=== PATIENT | male | born 1935 | race Caucasian/White ===

== ENCOUNTER → 2016-11-02 | Day surgery (SDC) | payer BC ==
[2016-10-27 15:04] VITALS: Ht 185.4 cm; Wt 86.4 kg
[~2016-11-02] VITALS: Ht 185.4 cm; Wt 86.4 kg
[~2016-11-02] MED LIST: 500ML BSS 0.3ML EPI 1:1000PF IRRIG ONE; ACET-1325; ACETAMINOPHEN 325 MG TAB PO PRN; AMVISC PLUS 0.8ML SYRINGE INT OCU ONE; ASPEC81 PO; ATROPINE SULFATE 0.1 MG/ML 5ML SYR IV PRN; AcetaZOLAMIDE 250 MG TAB ONE; BETAXOLOL HCL 0.25% OP SUSP PER DROP CHARGE OPR SCH; BRIMONIDINE TART 0.2% OP SOLN PER DROP CHARGE ONE; BSS FLUSH ONE; ENDOCOAT 0.85ML SYRINGE INT OCU ONE; EpHEDrine SULFATE INJ 50 MG/ML AMP IV PRN; EpINEphrine INJ 1MG/ML AMP 1 MG/ML AMP ONE; FENTANYL CITRATE INJ 50 MCG/1 ML 2 ML VIAL IV PRN; FLUMAZENIL 0.1 MG/1 ML 10 ML VIAL IV PRN; HYDROmorphone INJ 2 MG/ML SYR/VIAL IV PRN; LABETALOL HCL IV 5 MG/ML 20ML IV PRN; LACTATED RINGER'S 1000ML 500 ML IV SCH; LIDOCAINE 4% OP SOLN DROP CHARGE ONE; LIDOCAINE 4% OP SOLN DROP CHARGE OPR SCH; LIDOCAINE HCL 1% MPF 2 ML VIAL ONE; MEPERIDINE HCL 25 MG/ML CARP IV PRN; MIDAZOLAM HCL 1 MG/ML 2ML VIAL ONE; MIX: 4ML BSS 1ML EPI 1:1000 PF INSTIL ONE; MOXIFLOXACIN OPH SOLN PER DROP CHARGE ONE; MULT-190 PO; NALOXONE HCL 0.4 MG/1 ML VIAL/CARP IV PRN; NEPA0.6D; OCUCOAT 1 ML SOLN IO ONE; OFLO0.3S OP; ONDANSETRON INJ 2 MG/ML 2 ML VIAL IV PRN; PHENYLEPHRINE 100MCG/ML 5ML SYR IV PRN; POVIDONE-IODINE OP SOLN 30 ML BTL ONE; PRED1SUS3 OPL; PROPARACAINE 0.5% OP SOLN PER DROP CHARGE OPR SCH; TOBRAMYCIN/DEXAMETHASONE OPH OINT PER APPLN CHARGE ONE
--- NOTE | 2016-11-02 06:45 | History & Physical Bridge - [place] ---
H&P Re-Evaluation Bridge Note: I have examined the patient, reviewed the History & Physical and in the interval since the performance of the History & Physical I have noted the following changes of clinical significance: No changes noted
[2016-11-02] MEDS: PHENYLEPHRINE HCL 2.5% OP SOLN PER DROP CHARGE OPR SCH ×2 (06:51→06:56)
[2016-11-02] MEDS: TROPICAMIDE 1% OP SOLN PER DROP CHARGE OPR SCH ×2 (06:52→06:57)
[2016-11-02] MEDS: CYCLOPENTOLATE HCL 1% OP SOLN PER DROP CHARGE OPR SCH ×2 (06:53→06:59)
[2016-11-02] MEDS: MOXIFLOXACIN OPH SOLN PER DROP CHARGE OPR SCH ×2 (06:54→07:05)
--- NOTE | 2016-11-02 07:32 | Discharge Instructions-SurgCtr ---
Discharge Instructions Visit Reason for Visit: Right Cataract Discharge Goals Goal(s): Improve function Medications Stopped Medications Name(s): Ocuvite Activity Recommendations Lifting Limitations: no more than 10 pounds Exercise/Sports Limitations: gradually increase as tolerated May Resume Sexual Activity: when tolerated Shower/Bathe: tomorrow Driving or Machine Use: resume 1 day after discharge Anesthesia . Post Anesthesia Instructions: If you have had General Anesthesia or IV Sedation: * Do not drive today. * Resume driving when surgeon permits. * Do not make important decisions or sign legal documents today. * Call surgeon for: 1. Temperature elevations greater than 101 degrees F. 2. Uncontrollable pain. 3. Excessive bleeding. 4. Persistent nausea and vomiting. 5. Medication intolerance (nausea, vomiting or rash). * For nausea and vomiting use only clear liquids such as: tea, soda, bouillon until nausea subsides, then gradually increase diet as tolerated. * If you have any concerns or questions, call your surgeon's office. If physician is unavailable and it is an emergency, call 911 or go to the nearest emergency room. . Diet Recommendations Home Diet: resume previous diet Medical Emergencies . Who to Call and When: Medical Emergencies: If at any time you feel your situation is an emergency, please call 911 immediately. . Non-Emergent Contact . . "Provider Documentation" section prepared by Shane Bolanos.
--- NOTE | 2016-11-02 07:55 | [facility] Post Operative Brief Note ---
Immediate Operative Summary Operative Date Nov 02, 2016. Pre-Operative Diagnosis Right eye cataract Post-Operative Diagnosis Same as preop Procedure(s) Performed Right Cataract Phacoemulsification With Intraocular Lens Implant Surgeon Dr. Bolanos Courtroom Clerk Surgeon(s) None Estimated Blood Loss 0 mL Findings Dense nuclear cataract Fluids (cc crystalloids) 400 ml Specimens None Drains none Anesthesia L/S Complication(s) None Disposition Recovery Room / PACU
[2016-11-02 08:01] VITALS: TEMP 36.4
--- NOTE | 2016-11-02 08:13 | Anesthesia Progress Nt - [facility] ---
Anesthesia Post Op Note Date & Time Nov 02, 2016 at 08:12 Vital Signs Pain Intensity: 0 Vital Signs Past 12 Hours Date Time Temp Pulse Resp B/P Pulse Ox O2 Delivery O2 Flow Rate FiO2 11/02/16 08:01 36.4 77 16 127/75 96 Room Air 11/02/16 06:43 36.5 64 18 137/78 94 Room Air Notes Mental Status: alert / awake / arousable, participated in evaluation Pt Amnestic to Procedure: Yes Nausea / Vomiting: adequately controlled Pain: adequately controlled Airway Patency, RR, SpO2: stable & adequate BP & HR: stable & adequate Hydration State: stable & adequate Anesthetic Complications: no major complications apparent
[2016-11-02 08:31] VITALS: BP 132/76; PULSE 58; O2SAT 97
--- NOTE | 2016-11-02 08:43 | OPERATIVE REPORT ---
DATE OF OPERATION: 11/02/2016 PREOPERATIVE DIAGNOSIS: Senile nuclear cataract, right eye. POSTOPERATIVE DIAGNOSIS: Senile nuclear cataract, right eye. PROCEDURE: Phacoemulsification of right cataract with posterior chamber lens implant, type Bausch \T\ Lomb, model MX60, power +21.0 Diopters. ANESTHESIA: Local standby. SURGEON: Dr. Bolanos. COMPLICATIONS: None. OPERATING TIME: 10 minutes. OPERATION AND FINDINGS: PROCEDURE: The right pupil was dilated. The anesthetic was administered using a topical technique. The right eye was prepped and draped. A speculum was placed. A paracentesis was placed. The chamber was filled with Amvisc Plus and EndoCoat. Epinephrine solution was used. A clear corneal incision was formed. A capsulorrhexis was performed. The nucleus was hydrodissected. The lens was removed with phacoemulsification. Time was 8.43 seconds. The aspiration unit was used to remove the cortex. The capsule was filled with Amvisc Plus. The lens implant was folded and placed into the capsule. The incision was hydrated. The Amvisc was aspirated. The wound was secure. The chamber was deep. The pupil was round. Alphagan and TobraDex ointment and Vigamox solution were placed. The speculum was removed. DISPOSITION: The patient was returned to the recovery room in stable condition. I attest to the content of the Intraoperative Record and any orders documented therein. Any exceptions are noted below. I attest to the content of the Intraoperative Record and any orders documented therein. Any exceptions are noted below. SPENCER
== END | disposition home or self-care (01) ==
LOC: X.SURG 06:25
PROVIDERS: ATTEND Specialist
DX: H25.11 Age-related nuclear cataract, right eye (principal)

== ENCOUNTER → 2016-11-16 | Day surgery (SDC) | payer BC ==
[2016-11-09 14:40] VITALS: Ht 185.4 cm; Wt 86.4 kg
[~2016-11-16] VITALS: Ht 185.4 cm; Wt 86.4 kg
[~2016-11-16] MED LIST changes: -ACET-1325; -AcetaZOLAMIDE 250 MG TAB ONE; +AcetaZOLAMIDE 250 MG TAB PO SCH; +BETAXOLOL HCL 0.25% OP SUSP PER DROP CHARGE OPL SCH; -BETAXOLOL HCL 0.25% OP SUSP PER DROP CHARGE OPR SCH; -EpHEDrine SULFATE INJ 50 MG/ML AMP IV PRN; -FENTANYL CITRATE INJ 50 MCG/1 ML 2 ML VIAL IV PRN; +FENTANYL CITRATE INJ 50 MCG/1 ML 2 ML VIAL ONE; -FLUMAZENIL 0.1 MG/1 ML 10 ML VIAL IV PRN; -HYDROmorphone INJ 2 MG/ML SYR/VIAL IV PRN; -LABETALOL HCL IV 5 MG/ML 20ML IV PRN; +LIDOCAINE 4% OP SOLN DROP CHARGE OPL SCH; -LIDOCAINE 4% OP SOLN DROP CHARGE OPR SCH; -MEPERIDINE HCL 25 MG/ML CARP IV PRN; -NALOXONE HCL 0.4 MG/1 ML VIAL/CARP IV PRN; -NEPA0.6D; -OFLO0.3S OP; -ONDANSETRON INJ 2 MG/ML 2 ML VIAL IV PRN; -PHENYLEPHRINE 100MCG/ML 5ML SYR IV PRN; -PRED1SUS3 OPL; +PROPARACAINE 0.5% OP SOLN PER DROP CHARGE OPL SCH; -PROPARACAINE 0.5% OP SOLN PER DROP CHARGE OPR SCH
[2016-11-16] MEDS: PHENYLEPHRINE HCL 2.5% OP SOLN PER DROP CHARGE OPL SCH ×2 (09:57→10:02)
[2016-11-16] MEDS: TROPICAMIDE 1% OP SOLN PER DROP CHARGE OPL SCH ×2 (09:58→10:03)
[2016-11-16] MEDS: CYCLOPENTOLATE HCL 1% OP SOLN PER DROP CHARGE OPL SCH ×2 (09:59→10:04)
[2016-11-16] MEDS: MOXIFLOXACIN OPH SOLN PER DROP CHARGE OPL SCH ×2 (10:00→10:10)
--- NOTE | 2016-11-16 10:43 | Discharge Instructions-SurgCtr ---
Discharge Instructions Visit Reason for Visit: Cataract Left Eye Discharge Discharge Diagnosis / Problem: lens implant left eye Discharge Goals Goal(s): Improve function Activity Recommendations Activity Limitations: resume your previous activity Lifting Limitations: no more than 10 pounds Exercise/Sports Limitations: gradually increase as tolerated May Resume Sexual Activity: when tolerated Shower/Bathe: tomorrow Driving or Machine Use: resume 1 day after discharge Anesthesia . Post Anesthesia Instructions: If you have had General Anesthesia or IV Sedation: * Do not drive today. * Resume driving when surgeon permits. * Do not make important decisions or sign legal documents today. * Call surgeon for: 1. Temperature elevations greater than 101 degrees F. 2. Uncontrollable pain. 3. Excessive bleeding. 4. Persistent nausea and vomiting. 5. Medication intolerance (nausea, vomiting or rash). * For nausea and vomiting use only clear liquids such as: tea, soda, bouillon until nausea subsides, then gradually increase diet as tolerated. * If you have any concerns or questions, call your surgeon's office. If physician is unavailable and it is an emergency, call 911 or go to the nearest emergency room. . Instructions / Follow-Up Instructions / Follow-Up ACTIVITY RECOMMENDATIONS: * Light activities. * Mild irritation and blurred vision are common for the first few days. * You may walk outside, read, watch television. * Redness around the white part of the eye is common. MEDICATIONS: Resume previous medications unless instructed otherwise by your surgeon. * Take white Diamox (Acetazolamide) tablet at 2 pm today. Start all eye drops at 2 pm today: * Eye drops (today and tomorrow): Prednisone - one drop in operative eye every 3 hours while awake Ofloxacin - one drop in operative eye every 3 hours while awake Ilevro - one drop in operative eye once a day SPECIAL CARE INSTRUCTIONS: * Tape plastic shield over eye to sleep at night. Call your doctor at with any concerns or problems. FOLLOW UP VISIT: Follow-up with Dr Bolanos at [place] office as scheduled. Diet Recommendations Home Diet: no limitations Procedures Procedures Performed: cataract extraction with lens implant Pending Studies Studies pending at discharge: no Medical Emergencies . Who to Call and When: Medical Emergencies: If at any time you feel your situation is an emergency, please call 911 immediately. . Non-Emergent Contact Non-Emergency issues call your: [facility] Worker Call Non-Emergent contact if: your pain is not controlled [phone] . . "Provider Documentation" section prepared by Shane Bolanos.
--- NOTE | 2016-11-16 10:45 | [facility] Operative Report ---
Operative Report 1. PREOPERATIVE DIAGNOSIS: Senile nuclear cataract, left eye. 2. POSTOPERATIVE DIAGNOSIS: Senile nuclear cataract, left eye. 3. PROCEDURE: Phacoemulsification of left cataract with posterior chamber lens implant, type Bausch & Lomb, model MX60, power +21.0 diopters. ANESTHESIA: Local standby. SURGEON: Dr. Bolanos. COMPLICATIONS: None. OPERATING TIME: 10 minutes. 4. OPERATION AND FINDINGS: DESCRIPTION OF PROCEDURE: The left pupil was dilated. The anesthetic was administered using a topical technique. The left eye was prepped and draped. A speculum was placed. A clear corneal incision was formed. The chamber was filled with Amvisc Plus and Endocoat. Epinephrine solution was used. A paracentesis was placed. A capsulorrhexis was performed. The nucleus was hydrodissected. The lens was removed with phacoemulsification. Time was 7.86 seconds. The aspiration unit was used to remove the cortex. The capsule was filled with Amvisc Plus. The lens implant was folded and placed into the capsule. The incision was hydrated. The Amvisc was aspirated. The wound was secure. The chamber was deep. The pupil was round. TobraDex ointment and Vigamox solution were placed. The speculum was removed. The patient was returned to the Recovery Room in stable condition. I attest to the content of the Intraoperative Record and any orders documented therein. Any exceptions are noted below. The scribe's documentation has been prepared in my presence, under my direction and personally reviewed by me in its entirety. I confirm that the note above accurately reflects all work, treatment, procedures, and medical decision making performed by me. I personally scribed for Shane Bolanos M.D. ([email or web address]) on 11/16/16 at 10:44. Electronically submitted by Lidia Dee ([email or web address]).
[2016-11-16 10:56] VITALS: TEMP 36
--- NOTE | 2016-11-16 11:03 | Anesthesia Progress Nt - [facility] ---
Anesthesia Post Op Note Date & Time Nov 16, 2016 at 11:03 Vital Signs Pain Intensity: 0 Vital Signs Past 12 Hours Date Time Temp Pulse Resp B/P Pulse Ox O2 Delivery O2 Flow Rate FiO2 11/16/16 10:56 36.0 87 16 117/87 98 Room Air 11/16/16 09:46 36.2 69 16 161/68 97 Room Air Notes Mental Status: alert / awake / arousable, participated in evaluation Pt Amnestic to Procedure: Yes Nausea / Vomiting: adequately controlled Pain: adequately controlled Airway Patency, RR, SpO2: stable & adequate BP & HR: stable & adequate Hydration State: stable & adequate Anesthetic Complications: no major complications apparent
[2016-11-16 11:16] VITALS: BP 120/71; PULSE 57; O2SAT 96
== END | disposition home or self-care (01) ==
LOC: X.SURG 09:38
PROVIDERS: ATTEND Specialist
DX: H25.12 Age-related nuclear cataract, left eye (principal)

== ENCOUNTER → 2017-01-03 | Outpatient (CLI) | payer BC ==
[~2017-01-03] MED LIST changes: -500ML BSS 0.3ML EPI 1:1000PF IRRIG ONE; -ACETAMINOPHEN 325 MG TAB PO PRN; -AMVISC PLUS 0.8ML SYRINGE INT OCU ONE; -ATROPINE SULFATE 0.1 MG/ML 5ML SYR IV PRN; -AcetaZOLAMIDE 250 MG TAB PO SCH; -BETAXOLOL HCL 0.25% OP SUSP PER DROP CHARGE OPL SCH; -BRIMONIDINE TART 0.2% OP SOLN PER DROP CHARGE ONE; -BSS FLUSH ONE; -ENDOCOAT 0.85ML SYRINGE INT OCU ONE; -EpINEphrine INJ 1MG/ML AMP 1 MG/ML AMP ONE; -FENTANYL CITRATE INJ 50 MCG/1 ML 2 ML VIAL ONE; +GADAVIST IV PRN; -LACTATED RINGER'S 1000ML 500 ML IV SCH; -LIDOCAINE 4% OP SOLN DROP CHARGE ONE; -LIDOCAINE 4% OP SOLN DROP CHARGE OPL SCH; -LIDOCAINE HCL 1% MPF 2 ML VIAL ONE; -MIDAZOLAM HCL 1 MG/ML 2ML VIAL ONE; -MIX: 4ML BSS 1ML EPI 1:1000 PF INSTIL ONE; -MOXIFLOXACIN OPH SOLN PER DROP CHARGE ONE; -OCUCOAT 1 ML SOLN IO ONE; -POVIDONE-IODINE OP SOLN 30 ML BTL ONE; -PROPARACAINE 0.5% OP SOLN PER DROP CHARGE OPL SCH; -TOBRAMYCIN/DEXAMETHASONE OPH OINT PER APPLN CHARGE ONE
--- NOTE | 2017-01-03 13:28 | DIAGNOSTIC IMAGING REPORT ---
MRI CERVICAL SPINE COMBO CLINICAL HISTORY: SPINAL TUMOR TECHNIQUE: Sagittal and axial T1, T2 and STIR images were obtained. Pre and post gadolinium images were obtained. 8.8 cc of intravenous Gadavist was administered. COMPARISON STUDY: 12/30/2014 There are no suspicious areas of marrow replacement. There is a mixed signal intensity intramedullary lesion with thin the cervical cord at the C5 and C6 level measuring 22 x 10 x 6 mm. This contains a small cystic component. There is subtle post gadolinium enhancement. The lesion is unchanged in size when compared the preceding study. C2-3: There is no evidence of disc bulge or focal herniation. There is no spinal or foraminal stenosis. C3-4: There is cystic degeneration of the disc. There is a mild circumferential disc bulge. There is bilateral foraminal narrowing. C4-5: There is a circumferential disc bulge present. There is mild spinal canal narrowing. There is minor bilateral foraminal narrowing C5-6 :There is a disc osteophyte complex. There is mild spinal stenosis. There is moderate bilateral foraminal narrowing C6-7: There is no evidence of significant disc bulge or focal herniation. There is no spinal stenosis. There is mild left-sided foraminal narrowing C7-T1: There is no evidence of disc bulge or focal herniation. There is no evidence of spinal or foraminal stenosis. IMPRESSION: 1. Multilevel spondylitic changes, essentially unchanged from the prior 2014 study 2. 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 No significant change in size or enhancement characteristics. Electronically signed by: Yovanny Moctezuma M.D. 01/03/2017 1:27 PM Dictated Date/Time: 01/03/2017 1:18 PM
== END | disposition home or self-care (01) ==
LOC: C.MRIBC 11:51
PROVIDERS: ATTEND Family Medicine
DX: D49.7 Neoplasm of unspecified behavior of endocrine glands and other parts of nervous system (principal)

== ENCOUNTER → 2017-11-15 | Outpatient (CLI) | payer BC ==
[~2017-11-15] MED LIST changes: +ASPCH81X PO; -GADAVIST IV PRN
[2017-11-15 15:43] LABS: BASO % 0.9 %; BASO ABS # 0.07 K/uL (0-0.2); HEMATOCRIT 39.3 % (42-52); HEMOGLOBIN 13.2 g/dL (14.0-18.0); IG# 0.02 K/uL (0.00-0.02); LYMPH ABS # 1.87 K/uL (1.2-3.4); MEAN CELL VOLUME 94.2 fL (80-100); MEAN CORPUSCULAR HEMOGLOBIN 31.7 pg (25-34); MEAN CORPUSCULAR HGB CONC 33.6 g/dl (32-36); MEAN PLATELET VOLUME 10.7 fL (7.4-10.4); MONO % 10.5 %; MONO ABS # 0.79 K/uL (0.11-0.59); NEUT % 59.3 %; NEUT ABS # 4.44 K/uL (1.4-6.5); PLATELET COUNT 270 K/uL (130-400); RED CELL DISTRIBUTION WIDTH CV 13.3 % (11.5-14.5); RED CELL DISTRIBUTION WIDTH SD 45.6 fL (36.4-46.3); WHITE BLOOD COUNT 7.49 K/uL (4.8-10.8)
[2017-11-15 16:14] LABS: BLOOD UREA NITROGEN 10 mg/dl (7-18); CALCIUM 8.7 mg/dl (8.5-10.1); CARBON DIOXIDE 29 mmol/L (21-32); CREATININE 0.89 mg/dl (0.60-1.40); GLUCOSE 104 mg/dl (70-99); POTASSIUM 3.8 mmol/L (3.5-5.1); SODIUM 141 mmol/L (136-145)
== END | disposition home or self-care (01) ==
LOC: C.CPL 15:07
PROVIDERS: ATTEND Orthopaedic Surgery
DX: Z01.812 Encounter for preprocedural laboratory examination (principal); Z01.810 Encounter for preprocedural cardiovascular examination; M75.122 Complete rotator cuff tear or rupture of left shoulder, not specified as traumatic

== ENCOUNTER → 2017-12-13 | Outpatient (CLI) | payer BC ==
[~2017-12-13] MED LIST changes: -ASPEC81 PO
== END | disposition home or self-care (01) ==
LOC: C.LAB1850 11:37
PROVIDERS: ATTEND Physician Assistant
DX: I45.2 Bifascicular block (principal)

== ENCOUNTER → 2017-12-21 | Day surgery (SDC) | payer BC ==
[2017-11-15 09:20] VITALS: BMI 25.0
[2017-12-20 14:09] VITALS: Ht 185.4 cm; Wt 86.4 kg
[~2017-12-21] VITALS: Ht 185.4 cm; Wt 86.4 kg
[~2017-12-21] MED LIST changes: +ATROPINE SULFATE 0.1 MG/ML 5ML SYR IV PRN; +BUPIVACAINE 0.25% 30 ML VIAL ONE; +CEFAZOLIN 2000MG IV PUSH 15 ML IV SCH; +DEXAMETHASONE SOD INJ 4 MG/ML VIAL ONE; +DEXT30TA7 PO; +EpHEDrine SULFATE INJ 50 MG/ML AMP IV PRN; +EpINEphrine INJ 1MG/ML AMP 1 MG/ML AMP ONE; +FENTANYL CITRATE INJ 50 MCG/1 ML 2 ML VIAL IV PRN; +FENTANYL CITRATE INJ 50 MCG/1 ML 2 ML VIAL ONE; +FLUMAZENIL 0.1 MG/1 ML 10 ML VIAL IV PRN; +HYDROmorphone INJ 2 MG/ML SYR/VIAL IV PRN; +KETO10TA PO; +LABETALOL HCL IV 5 MG/ML 20ML IV PRN; +LACTATED RINGER'S 1000ML 1,000 ML IV SCH; +MEPERIDINE HCL 25 MG/ML CARP IV PRN; +MIDAZOLAM HCL 1 MG/ML 2ML VIAL ONE; +NALOXONE HCL 0.4 MG/1 ML VIAL/CARP IV PRN; +ONDANSETRON INJ 2 MG/ML 2 ML VIAL IV PRN; +OXYC-57 PO; +OXYCODONE/ACETAMINOPHEN 5-325 TAB PO PRN; +PHENYLEPHRINE 100MCG/ML 5ML SYR IV PRN; +PROPOFOL IV EMULSION 10 MG/ML 20 ML VIAL IV ONE; +ROPIVACAINE 0.5% 5 MG/ML 30 ML VIAL ONE; +SODIUM CHLORIDE 0.9% 1000ML 1,000 ML IV SCH
--- NOTE | 2017-12-21 15:14 | [facility] Post Operative Brief Note ---
Immediate Operative Summary Operative Date Dec 21, 2017. Pre-Operative Diagnosis Left Shoulder Full Thickness Rotator Cuff Tear Post-Operative Diagnosis Same Procedure(s) Performed Left Shoulder Arthroscopy, Medium Rotator Cuff Repair, Acromioplasty, Biceps Tenodesis Surgeon Dr. Leach Human Resources Hr Generalist Surgeon(s) Andria Samaniego PA-C Estimated Blood Loss 5 ml Findings Consistent with Post-Op Diagnosis Specimens None Anesthesia Type General Regional Complication(s) none Disposition Disposition: Recovery Room / PACU
[2017-12-21 15:24] VITALS: TEMP 37.1
--- NOTE | 2017-12-21 15:34 | Discharge Instructions-SurgCtr ---
Discharge Instructions Date of Service Dec 21, 2017. Visit Reason for Visit: Left Shoulder Full Thickness Rotator Cuff Tear Discharge Discharge Diagnosis / Problem: left shoulder rotator cuff tear Discharge Goals Goal(s): Decrease discomfort, Improve function, Therapeutic intervention Activity Recommendations Activity Limitations: per Instructions/Follow-up section Anesthesia . Post Anesthesia Instructions: If you have had General Anesthesia or IV Sedation: * Do not drive today. * Resume driving when surgeon permits. * Do not make important decisions or sign legal documents today. * Call surgeon for: 1. Temperature elevations greater than 101 degrees F. 2. Uncontrollable pain. 3. Excessive bleeding. 4. Persistent nausea and vomiting. 5. Medication intolerance (nausea, vomiting or rash). * For nausea and vomiting use only clear liquids such as: tea, soda, bouillon until nausea subsides, then gradually increase diet as tolerated. * If you have any concerns or questions, call your surgeon's office. If physician is unavailable and it is an emergency, call 911 or go to the nearest emergency room. . Instructions / Follow-Up Instructions / Follow-Up MEDICATIONS: * Resume previous medications unless instructed otherwise by your surgeon. * Always take pain medication on a full stomach or with food to avoid upset stomach. * Do not drink alcohol or drive while taking narcotics. * Ibuprofen or Tylenol may be taken if narcotic not needed. No ibuprofen while taking toradol SPECIAL CARE INSTRUCTIONS: __ None _x_ Keep extremity iced x 48 hours; apply ice 20-30 minutes 8-10 times/day. May remove at night. __ Sling __24 hrs/day __ Remove at night _x_ Shoulder Immobilizer __ 24 hrs/day __ Remove at night _x_ Dressing __ Maintain until seen in office, may shower with plastic over site _x_ Remove dressings in 48 hours and then may shower _x_ Cover incisions with band-aids after showering __ Do not remove steri-strips Call physician if chills or temperature rises above 102 degrees or pain unrelieved by prescribed pain medications at . . follow up as scheduled Diet Recommendations Home Diet: resume previous diet Procedures Procedures Performed: Left Shoulder Arthroscopy, Medium Rotator Cuff Repair, Acromioplasty, Biceps Tenodesis Pending Studies Studies pending at discharge: no Medical Emergencies . Who to Call and When: Medical Emergencies: If at any time you feel your situation is an emergency, please call 911 immediately. . Non-Emergent Contact Non-Emergency issues call your: Surgeon . . "Provider Documentation" section prepared by Wilfredo Samaniego. .
--- NOTE | 2017-12-21 15:51 | Anesthesia Progress Nt - [facility] ---
Anesthesia Post Op Note Date & Time Dec 21, 2017 at 15:51 Vital Signs Pain Intensity: 0 Vital Signs Past 12 Hours Date Time Temp Pulse Resp B/P (MAP) Pulse Ox O2 Delivery O2 Flow Rate FiO2 12/21/17 15:24 37.1 70 16 127/79 (95) 95 Room Air 12/21/17 14:10 75 15 125/76 99 12/21/17 14:10 75 12/21/17 14:05 68 20 122/80 100 12/21/17 14:05 69 12/21/17 14:00 72 14 131/81 98 12/21/17 14:00 74 12/21/17 13:59 72 12/21/17 13:59 71 16 132/84 95 12/21/17 13:59 71 16 132/84 95 12/21/17 13:59 72 12/21/17 13:54 65 12/21/17 13:54 65 0 95 12/21/17 13:54 65 12/21/17 13:54 65 0 95 12/21/17 13:49 69 0 97 12/21/17 13:49 68 12/21/17 13:49 69 0 97 12/21/17 13:49 68 12/21/17 13:22 36.4 73 18 133/80 (97) 96 Room Air Notes Mental Status: alert / awake / arousable, participated in evaluation Pt Amnestic to Procedure: Yes Nausea / Vomiting: adequately controlled Pain: adequately controlled Airway Patency, RR, SpO2: stable & adequate BP & HR: stable & adequate Hydration State: stable & adequate Anesthetic Complications: no major complications apparent
[2017-12-21 16:03] VITALS: BP 137/76; PULSE 77; O2SAT 95
--- NOTE | 2017-12-21 20:26 | OPERATIVE REPORT ---
DATE OF OPERATION: 12/21/2017 PREOPERATIVE DIAGNOSIS: Medium size rotator cuff tear of the left shoulder. POSTOPERATIVE DIAGNOSIS: Same. PROCEDURE: Left shoulder diagnostic arthroscopy with limited debridement, acromioplasty, rotator cuff repair and arthroscopic biceps tenodesis. SURGEON: Robert Leach DO. SENIOR NETWORK ENGINEER: Wilfredo Samaniego PA-C, whose assistance was necessary for positioning the arm and help with arthroscopic instrumentation. ANESTHESIA: Sedation with a left interscalene nerve block. COMPLICATIONS: None. CONDITION: Stable to PACU. INDICATIONS: Joseph is a pleasant 82-year-old male who fell off his tractor 4 months ago. He has had significant shoulder pain since. MRI and clinical examination were diagnostic for medium sized rotator cuff tear. After failing conservative treatment, he elected to undergo arthroscopy. DESCRIPTION OF PROCEDURE: On 12/21/2017, he arrived at [facility] for the above procedure. He was seen in preoperative holding area and operative extremity was identified and signed. He was given a preoperative antibiotic and a left interscalene nerve block. He was taken back to the operating room, laid on the table in supine position and given basic sedation. The left shoulder was then prepped and draped in sterile fashion. Time-out was done. The patient and operative extremity was properly identified. He was placed in a beach chair position and a scope was introduced in the posterior portal. Diagnostic arthroscopy showed no cartilage damage to the humeral head or the glenoid. There was a little bit of fraying of the anterior labrum. The biceps tendon was very frayed. The subscapularis was intact. There was a tear of the entire supraspinatus. The infraspinatus and teres minor were checked and intact. An anterior portal was made. A shaver was used to do a limited debridement of the intraarticular structures and the biceps tendon was arthroscopically tenotomized for later tenodesis. The scope was then put in the subacromial space. A lateral portal was made. A shaver was used to do a complete subacromial and subdeltoid bursectomy. An ablator was used to tease the coracoacromial ligament off the undersurface of the acromion and a 5-0 fareed was used to complete an acromioplasty of a Bigliani type 3 acromion. A shaver was used to remove any excess debris and attention was turned to the rotator cuff. There was a crescent shaped medium sized rotator cuff tear. An additional anterolateral portal was made and Chelsie cannulas were placed in each lateral portals. The greater tuberosity was prepared with a ring curette and a microfracture. The rotator cuff was then fixed with an Arthrex SpeedBridge configuration using 4.75 mm BioComposite SwiveLock suture anchors and FiberTapes. This gave a nice knotless SpeedBridge repair. Multiple pictures were taken. The long head of the biceps tendon was tagged with a FiberLink and incorporated into the anterior medial anchor. This completed an arthroscopic biceps tenodesis. Multiple pictures were taken. The scope was switched back into the glenohumeral joint and the articular margin of the rotator cuff had been restored. Pictures were taken. Arthroscopic instruments were removed from the shoulder. Portals sites were closed with 3-0 nylon. He was then placed in a soft dressing and an abduction arm sling. He was then taken to the postanesthesia care unit in stable condition. He tolerated the procedure well. I attest to the content of the Intraoperative Record and any orders documented therein. Any exception s are noted below.
== END | disposition home or self-care (01) ==
LOC: X.SURG 12:07
PROVIDERS: ATTEND Orthopaedic Surgery
DX: S46.012A Strain of muscle(s) and tendon(s) of the rotator cuff of left shoulder, initial encounter (principal); V84.9XXA Unspecified occupant of special agricultural vehicle injured in nontraffic accident, initial encounter

== ENCOUNTER 2023-11-27 13:33 | Observation (INO) ==
--- NOTE | 2023-11-27 13:38 | ED Triage Note ---
Date of Service November 27, 2023 Provider in Triage Author: Steffany Klein History of Present Illness This patient was briefly evaluated while in triage. An abbreviated physical exam was performed. This patient is a 88-year-old Male who presents to the ED for evaluation via EMS, was feeling weak and collapsed to the ground acutely today off balance with gait did have a fall vs syncopal episode Monday evening Physical Exam GENERAL: NAD CARDIOVASCULAR: RRR RESPIRATORY: CTA ABDOMEN: BS x 4. Nontender to palpation. NEURO: A&O x 3, no neuro deficits Initial orders for labs and / or imaging were placed and patient was placed in the waiting area until a bed is available. Please see further documentation for the full ED course.
[2023-11-27 14:44] LABS: Basophils # (auto) 0.06 K/uL (0.00-0.20); Basophils % (auto) 0.6 %; Eosinophils # (auto) 0.06 K/uL (0.00-0.50); Eosinophils % (auto) 0.6 %; Hematocrit (blood only) 37.8 % (42.0-52.0); Hemoglobin 12.8 g/dl (14.0-18.0); Immature Granulocytes # (auto) 0.07 K/uL (0.01-0.20); Immature Granulocytes % (auto) 0.7 %; Lymphocytes # (auto) 0.89 K/uL (1.20-3.40); Lymphocytes % (auto) 9.1 %; Mean Corpuscular Hemoglobin 31.6 pg (25.0-34.0); Mean Corpuscular Hgb Conc 33.9 g/dL (32.0-36.0); Mean Corpuscular Volume 93.3 fL (80.0-100.0); Mean Platelet Volume 10.1 fL (9.4-12.4); Monocytes # (auto) 0.79 K/uL (0.11-0.59); Monocytes % (auto) 8.1 %; Neutrophils # (auto) 7.88 K/uL (1.40-6.50); Neutrophils % (auto) 80.9 %; Platelet Count 253 K/uL (130-400); RDW Coefficient of Variation 13.2 % (11.5-14.5); RDW Standard Deviation 45.5 fL (36.4-46.3); Red Blood Count 4.05 M/uL (4.70-6.10); White Blood Count 9.75 K/ul (4.8-10.8)
[2023-11-27 14:55] LABS: Alanine Aminotransferase 14 U/L (7-52); Albumin Globulin Ratio 1.6 (0.9-2); Albumin Level 4.2 gm/dl (3.4-5.0); Alkaline Phosphatase 51 U/L (34-104); Anion Gap 5 (3-11); Aspartate Aminotransferase 19 U/L (13-39); BUN Creatinine Ratio 15.3 (10-20); Bilirubin,Total 0.7 mg/dl (0.2-1.0); Blood Urea Nitrogen 11 mg/dl (6-23); Calcium 9.2 mg/dl (8.6-10.3); Carbon Dioxide 29 mmol/L (21-32); Chloride 105 mmol/L (98-107); Est GFR (African American) 97.9 ml/min; Est GFR (Non-African American) 84.5 ml/min; Globulin 2.7 gm/dl (2.5-4.0); Glucose 101 mg/dl (70-99(Fasting)); Sodium 139 mmol/L (136-145); Total Protein 6.9 gm/dl (6.0-8.3)
[2023-11-27 15:01] LABS: Troponin I High Sensitivity 5.1 pg/ml (0-20)
[2023-11-27 15:03] LABS: Prothrombin Time 10.9 Seconds (9.0-12.0)
--- NOTE | 2023-11-27 15:08 | CT Scan Report ---
HEAD CT NONCONTRAST CT DOSE: 625.8 mGy.cm HISTORY: WEAKNESS, FALL 3 DAYS AGO TECHNIQUE: Multiaxial CT images of the head were performed without the use of intravenous contrast. A utomated exposure control was utilized for this study. A dose lowering technique was utilized adheri ng to the principles of ALARA. Comparison: None. Findings: The paranasal sinuses and mastoid air cells are clear. The calvarium and skull base are int act. There is no mass, hematoma, midline shift, acute infarct. White matter hypodensity is nonspecifi c but suggestive of microvascular ischemic change. The ventricles and sulci demonstrate mild age-rela zaid involutional changes. Subtle density along the anterior falx favors chronic calcification. 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 Impression: No definite acute intracranial abnormality. ACT 112: Negative or not required by law. Electronically signed by: Dean Nielson M.D. 11/27/2023 3:06 PM
--- NOTE | 2023-11-27 15:09 | XRay Report ---
XR chest 1V not portable CLINICAL HISTORY: WEAKNESS TECHNIQUE: Single frontal radiograph of the chest was obtained. Comparison: None available at the time of this dictation. FINDINGS: No lines and tubes are seen. Calcified aortic knob is seen. The lungs are clear. No evidence of pleur al effusion or pneumothorax. IMPRESSION: No acute chest disease. ACT 112: Negative or not required by law. Electronically signed by: Devan Cramer M.D. 11/27/2023 3:07 PM
--- NOTE | 2023-11-27 16:27 | Emergency Department Note ---
Impression & Plan Generalized weakness, Fall, Dehydration ED Provider Note ED Provider Note NAME: NATHALIE LAND AGE:88 SEX: Male : 1935 ARRIVES VIA: Private vehicle INFORMANT: Patient ED PROVIDER(s): Radha Thompson DO CHIEF COMPLAINT: Fall HPI: This is an 88-year-old male brought in by family due to concern for a fall today. Patient states he remembers being in the kitchen and drinking coffee and then remembers sitting on the floor. He does not remember falling and does not think he lost consciousness or passed out however he does not recall how he got from a standing position down to the floor. He states he called his and states when she got home she found him in a seated position with his back against the cabinets. She did not notice any color change or shaking. She states he seemed to answer questions appropriately and she was able to help him up and into a chair. She states he had a similar event on Monday where he fell against the wall and then slid down to a seated position on the floor. He was helped up and was able to sit for a little bit and then felt fine the rest of the evening. He states he felt well Monday and Monday. He denies any recent change in medications. He denies any recent fevers, chills, or URI symptoms. Patient admits to poor water intake and states on Monday the only thing he drank all day was 2 cups of coffee. He denies any recent change in urine or stools. He denies any recent chest pain, palpitations, or shortness of breath. He denies dizziness or headaches. He denies any neck or back pain. PAST MEDICAL HISTORY:See Below PAST SURGICAL HISTORY:See Below FAMILY HISTORY:See Below SOCIAL HISTORY:See Below HOME MEDICATIONS:See Below ALLERGIES:See Below VITALS:See Below PHYSICAL EXAMINATION: GENERAL: alert, well appearing, well nourished, no distress, non-toxic EYE EXAM: normal conjunctiva, PERRL and EOM's grossly intact OROPHARYNX: no exudate, no erythema, lips, buccal mucosa, and tongue normal and mucous membranes are dry NECK: supple, no nuchal rigidity, no adenopathy, non-tender LUNGS: Clear to auscultation. Normal chest wall mechanics, no w/r/r HEART: no murmurs, S1 normal and S2 normal ABDOMEN: abdomen soft, non-tender, normo-active bowel sounds, no masses, no rebound or guarding. BACK: Back is symmetrical on inspection and there is no deformity, no midline tenderness, no CVA tenderness. SKIN: no rashes, petechiae, orbruising UPPER EXTREMITIES: upper extremities are grossly normal. FROM, nml pulses b/l. LOWER EXTREMITIES: No pitting edema. FROM, nml pulses b/l. NEURO EXAM: Normal sensorium, cranial nerves II-XII grossly intact, normal speech, no facial droop,nogross weakness of arms, no gross weakness of legs. Gross sensation intact. No ataxia. Vital Signs: reviewed and remarkable Differential Diagnosis: CHI, CVA, vasovagal event, infection, hypoglycemia, electrolyte abnormalities, toxidrome, substance abuse, dysrhythmia, ACS, as well as others were entertained. MEDICAL DECISION MAKING: This is an 88-year-old male who presents after a fall versus syncopal event today. Patient with similar episode on Monday. Patient did appear clinically dehydrated. He was afebrile vital signs stable. Labs drawn and sent, IV established, EKG and chest x-ray performed at bedside interpreted by me. Once a regular patient room was available he was monitored on telemetry. Patient was allowed to eat and drink at bedside. After significant discussion at bedside between myself, the patient, , and daughter, we discussed differential diagnosis and concern given 2 episodes within the last few days altogether. We did try ambulatory trial here and patient was markedly unsteady. Due to concern for increased fall risk and safe discharge plan, we discussed additional inpatient evaluation. He and family verbalized understanding were in agreement with the plan. Case discussed with hospitalist team for additional evaluation and management. Consultation(s): 2209: Discussed with Dr. Rm, [facility] hospitalist team, for additional evaluation and management. 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 He has bilateral hand paresthesias as a result. He has been followed for many years and this has been reported to him as stable. His last imaging of this was 5 months ago according to the . Diagnostics Interpreted By Me: -ECG: Normal sinus at 61 with first-degree AV block, leftward axis, right bundle branch block, nonspecific ST/T wave changes -Cardiac Monitoring: An order was placed for continuous cardiac monitoring. The monitor shows a rate of 14 with normal sinus rhythm. -Laboratory studies: As stated above and show below. -Imaging studies: X-ray Chest: A single view study of the chest was reviewed and was negative for cardiomegaly, focal infiltrate, effusion, pulmonary edema, or wide mediastinum. 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 per MRI 03/26/2020 Cervical spondylosis Pain of left upper extremity Surgical History History of appendectomy S/P left rotator cuff repair Social History Smoking Status: Never smoker Tobacco Type: Cigarettes Hx Alcohol Use: Yes Hx Substance Use: No Preferred Language: Mongolian Communication Ability: Effective Visual Impairment: No Limitations Hearing Ability: Hard of Hearing School Physical Therapist Required: No Beliefs That Will Affect Care: None marital status: Current Living Situation: Spouse and Family current occupational status: retired Feels Safe at Home: Yes Assistive Devices: Glasses Allergies Allergies Allergy/AdvReac Type Severity Reaction Status Date / Time No Known Allergies Allergy Verified 11/27/23 20:36 Home Meds Home Medications Medication Instructions Recorded Confirmed tamsulosin 0.4 mg capsule 0.4 mg PO DAILY 11/27/20 11/27/23 vitamins A,C,O-zvku-kvbkte 2,148 1 tab PO BIDM 11/27/20 11/27/23 mcg-113 mg-45 mg-17.4 mg tablet (PreserVision AREDS) gabapentin 100 mg capsule 200 mg PO TID PRN Pain 11/27/23 11/27/23 Results & Data (ED) Vital Signs Vital Signs - 24 hr 11/27/23 13:37 11/27/23 20:00 11/27/23 21:30 Temperature 36.5 C Temperature Source Temporal Artery Scan Pulse Rate 70 Pulse Rate [Bilateral Finger] 65 76 Pulse Rhythm Regular Respiratory Rate 20 18 18 Respiratory Effort / Characteristics Non-Labored Spontaneous Respiratory Depth Normal Blood Pressure 149/76 H Blood Pressure [Right Arm] 143/87 H 132/91 Blood Pressure Mean 100 Blood Pressure Mean [Right Arm] 105 104 Pulse Oximetry 97 98 95 Oxygen Delivery Method Room Air Room Air Room Air Sepsis Recent Fever Within 48 Hours No Sepsis New/Unexplained Change in Mental Status No Sepsis Action Taken by Nursing No Action Required Laboratory Data 11/28/23 06:56 11/28/23 06:56 Lab Results 11/27/23 11/27/23 Range/Units 14:17 18:30 WBC 9.75 (4.8-10.8) K/ul RBC 4.05 L (4.70-6.10) M/uL Hgb 12.8 L (14.0-18.0) g/dl Hct 37.8 L (42.0-52.0) % MCV 93.3 (80.0-100.0) fL MCH 31.6 (25.0-34.0) pg MCHC 33.9 (32.0-36.0) g/dL RDW Std Deviation 45.5 (36.4-46.3) fL RDW Coeff of [place] 13.2 (11.5-14.5) % Plt Count 253 (130-400) K/uL MPV 10.1 (9.4-12.4) fL Immature Gran % (Auto) 0.7 % Neut % (Auto) 80.9 % Lymph % (Auto) 9.1 % [place] % (Auto) 8.1 % Eos % (Auto) 0.6 % Baso % (Auto) 0.6 % Neut # (Auto) 7.88 H (1.40-6.50) K/uL Lymph # (Auto) 0.89 L (1.20-3.40) K/uL [place] # (Auto) 0.79 H (0.11-0.59) K/uL Eos # (Auto) 0.06 (0.00-0.50) K/uL Baso # (Auto) 0.06 (0.00-0.20) K/uL Immature Gran # (Auto) 0.07 (0.01-0.20) K/uL PT 10.9 (9.0-12.0) Seconds INR 1.0 (0.9-1.1) Sodium 139 (136-145) mmol/L Potassium 4.0 (3.5-5.1) mmol/L Chloride 105 (98-107) mmol/L Carbon Dioxide 29 (21-32) mmol/L Anion Gap 5 (3-11) BUN 11 (6-23) mg/dl Creatinine 0.72 (0.6-1.4) mg/dl Est Cr Clr Drug Dosing Not Reportable Est GFR ( Amer) 97.9 ml/min Est GFR (Non-Af Amer) 84.5 ml/min BUN/Creatinine Ratio 15.3 (10-20) Glucose 101 H (70-99(Fasting)) mg/dl Calcium 9.2 (8.6-10.3) mg/dl Magnesium 2.0 (1.7-2.4) mg/dl Total Bilirubin 0.7 (0.2-1.0) mg/dl AST 19 (13-39) U/L ALT 14 (7-52) U/L Alkaline Phosphatase 51 (34-104) U/L Troponin I High Sens 5.1 (0-20) pg/ml Total Protein 6.9 (6.0-8.3) gm/dl Albumin 4.2 (3.4-5.0) gm/dl Globulin 2.7 (2.5-4.0) gm/dl Albumin/Globulin Ratio 1.6 (0.9-2) TSH 2.370 (0.300-4.500) uIu/ml Urine Color Yellow Urine Appearance Clear (Clear) Urine pH 7.0 (4.5-7.5) Ur Specific [place] 1.010 (1.000-1.030) Urine Protein Negative (Negative) Urine Glucose (UA) Negative (Negative) Urine Ketones Trace H (Negative) Urine Blood Negative (Negative) Urine Nitrite Negative (Negative) Urine Bilirubin Negative (Negative) Urine Urobilinogen Negative (Negative) Ur Leukocyte Esterase Negative (Negative) Adenovirus (PCR) Not Detected (NotDetected) B. pertussis DNA (PCR) Not Detected (NotDetected) B.parapertussis DNA PCR Not Detected (NotDetected) C. pneumoniae DNA (PCR) Not Detected (NotDetected) Coronavirus OC43 (PCR) Not Detected (NotDetected) Coronavirus HKU1 (PCR) Not Detected (NotDetected) Coronavirus 229E (PCR) Not Detected (NotDetected) SARS-CoV-2 (PCR) Not Detected (NotDetected) Coronavirus NL63 (PCR) Not Detected (NotDetected) Human Metapneumovir PCR Not Detected (NotDetected) Influenza Type A (PCR) Not Detected (NotDetected) Influenza Type B (PCR) Not Detected (NotDetected) M. pneumoniae (PCR) Not Detected (NotDetected) Parainfluenza 1 (PCR) Not Detected (NotDetected) Parainfluenza 2 (PCR) Not Detected (NotDetected) Parainfluenza 3 (PCR) Not Detected (NotDetected) Parainfluenza 4 (PCR) Not Detected (NotDetected) RSV (PCR) Not Detected (NotDetected) Entero/Rhino (PCR) Not Detected (NotDetected) Administered Medications Discontinued Medications Sodium Chloride (Nss) 1,000 mls @ 75 mls/hr IV .[id number] MARIANNE Stop: 12/28/23 00:02 Last Admin: 11/28/23 00:09 Dose: 75 mls/hr Documented By: DIANNA Multivitamins/Minerals (Cerovite Adv Formula Tab) 1 tab PO DAILY [facility] Stop: 12/28/23 08:59 Last Admin: 11/28/23 09:07 Dose: 1 tab Documented By: TOMEKA Tamsulosin HCl (Tamsulosin Hcl 0.4 Mg Cap) 0.4 mg PO DAILY [facility] Stop: 12/28/23 08:59 Last Admin: 11/28/23 09:07 Dose: 0.4 mg Documented By: TOMEKA Imaging Data Radiologist's Impression: Chest X-Ray 11/27/23 13:38 XR chest 1V not portable CLINICAL HISTORY: WEAKNESS TECHNIQUE: Single frontal radiograph of the chest was obtained. Comparison: None available at the time of this dictation. FINDINGS: No lines and tubes are seen. Calcified aortic knob is seen. The lungs are clear. No evidence of pleural effusion or pneumothorax. IMPRESSION: No acute chest disease. ACT 112: Negative or not required by law. Electronically signed by: Devan Cramer M.D. 11/27/2023 3:[address] 11/27/23 13:[address] DOSE: 625.8 mGy.cm HISTORY: WEAKNESS, FALL 3 DAYS AGO TECHNIQUE: Multiaxial CT images of the head were performed without the use of intravenous contrast. Automated exposure control was utilized for this study. A dose lowering technique was utilized adhering to the principles of ALARA. Comparison: None. Findings: The paranasal sinuses and mastoid air cells are clear. The calvarium and skull base are intact. There is no mass, hematoma, midline shift, acute infarct. White matter hypodensity is nonspecific but suggestive of microvascular ischemic change. The ventricles and sulci demonstrate mild age-related involutional changes. Subtle density along the anterior falx favors chronic calcification. 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 Impression: No definite acute intracranial abnormality. ACT 112: Negative or not required by law. Electronically signed by: Dean Nielson M.D. 11/27/2023 3:06 PM Discharge Plan Visit Data Chief Complaint: Fall Stated Complaint: FALL, WEAKNESS ED Provider: Radha Thompson Discharge Problem: Generalized weakness, Fall, Dehydration Patient Disposition: Admitted As Inpatient Discharge Instructions Interventions: ED Discharge Assessment Last Done: 11/28/23 00:02
[2023-11-27 19:12] LABS: Appearance Urine Clear (Clear); Bilirubin Urine Negative (Negative); Blood Urine Negative (Negative); Color Urine Yellow; Glucose Urine UA Negative (Negative); Ketones Urine Trace (Negative); Leukocyte Esterase Urine Negative (Negative); Nitrite Urine Negative (Negative); Protein Urine Negative (Negative); Urobilinogen Urine Negative (Negative)
[2023-11-27 19:32] LABS: Adenovirus PCR Not Detected (NotDetected); Bordetella parapertussis PCR Not Detected (NotDetected); Bordetella pertussis PCR Not Detected (NotDetected); Chlamydia pneumoniae PCR Not Detected (NotDetected); Coronavirus 229E PCR Not Detected (NotDetected); Coronavirus CoV-2 (COVID19)PCR Not Detected (NotDetected); Coronavirus HKU1 PCR Not Detected (NotDetected); Coronavirus NL63 PCR Not Detected (NotDetected); Coronavirus OC43PCR Not Detected (NotDetected); Human Metapneumovirus PCR Not Detected (NotDetected); Influenza A PCR Not Detected (NotDetected); Influenza B PCR Not Detected (NotDetected); Mycoplasma pneumoniae PCR Not Detected (NotDetected); Parainfluenza Virus 1 PCR Not Detected (NotDetected); Parainfluenza Virus 2 PCR Not Detected (NotDetected); Parainfluenza Virus 3 PCR Not Detected (NotDetected); Parainfluenza Virus 4 PCR Not Detected (NotDetected); Respiratory Syncytial VirusPCR Not Detected (NotDetected); Rhinovirus/Enterovirus PCR Not Detected (NotDetected)
--- NOTE | 2023-11-27 23:02 | History & Physical Report ---
Date of Service November 27, 2023 Assessment & Plan (1) Syncope: Plan: -2 syncopal episodes, one on Monday and one this a.m. -Chest x-ray, head CT, CBC, PT/INR, CMP, TSH, magnesium were all normal. -Respiratory BioFire negative, UA with trace ketones. -EKG showed sinus rhythm with first-degree AV block. -Started on NSS at 75 mL an hour. -Will monitor on telemetry. -Will order carotid Doppler ultrasound and TTE. -PT OT ordered (2) Intramedullary abnormality of spinal cord: Plan: -Do not believe spinal tumor is related to syncopal episodes. Has been stable for many years. -CT cervical spine showed no acute fracture or subluxation. Did show moderate to severe multi level degenerative disc disease and facet or arthrosis throughout the cervical spine. As well as degenerative fusion of C3-4 and C5-6. -f/u outpatient Plan Fluids: NSS 2 75 ml/hr Nutrition: regular Code status: full code DVT ppx: scds PT/OT: yes Dispo: pcu/tele History of Present Illness Chief Complaint: Syncope Primary Care Provider: Rayray Mcnair DO Patient is a 88-year-old male with past medical history of spinal tumor and BPH who presents to the hospital after 2 episodes of syncope. First syncopal episode happened on Monday after patient was dancing with his he started to have weakness in the legs and blacked out for approximately 10 seconds and had to go down to the ground. He notes that he was not drinking much that day and thought that it was most likely related to dehydration. He then had a another episode of syncope today. This time patient was alone and lost consciousness for about 10 seconds and woke up with his back on the cabinets. He states that he then called his and she came home to see him on the ground as he position. He also notes that he did not drink much water prior to this episode this morning. Denies ever having issues like this in the past. Denies any recent changes in medications. Denies any recent chest pain, palpitations, shortness of breath, dizziness, headaches, neck pain, back pain, fevers, chills, nausea, or vomiting. In the ED: Chest x-ray negative, head CT negative, CBC benign, PT/INR normal, CMP benign, TSH normal, magnesium normal, UA with trace ketones, and respiratory BioFire negative. EKG showed sinus rhythm with first-degree AV block. Patient then tried to stand with nursing and was very weak. He will be admitted for syncopal workup/weakness. 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 5 mm per MRI 03/26/2020 Cervical spondylosis Pain of left upper extremity Surgical History History of appendectomy S/P left rotator cuff repair Social History Smoking Status: Never smoker Tobacco Type: Cigarettes Hx Alcohol Use: Yes Hx Substance Use: No Preferred Language: Afghan Communication Ability: Effective Visual Impairment: No Limitations Hearing Ability: Hard of Hearing Beliefs That Will Affect Care: None marital status: Current Living Situation: Spouse current occupational status: retired Feels Safe at Home: Yes Review of Systems Review of Systems: All systems reviewed & are unremarkable except as noted in Subjective Physical Exam Physical Exam: Constitutional: well-appearing, no acute distress HEENT: NCAT, no conjunctival injection CV: regular rhythm, no murmur appreciated, extremities well-perfused, no LE edema Resp: CTABL, no wheezes/rales/rhonchi appreciated, no increased work of breathing GI: soft, nondistended, nontender, BS normoactive MSK: no gross deformities appreciated Skin: warm, dry, no rash appreciated Neuro: alert, oriented, no focal neurologic deficit appreciated Results & Data Results & Data Vital Signs (Past 12 Hours) Vital Signs Temp Pulse Pulse Resp BP BP Pulse Ox 11/27/23 22:10 76 18 96 11/27/23 21:30 76 18 132/91 95 11/27/23 20:00 65 18 143/87 H 98 11/27/23 13:37 36.5 C 70 20 149/76 H 97 O2 Del Method 11/27/23 22:10 Room Air 11/27/23 21:30 Room Air 11/27/23 20:00 Room Air 11/27/23 13:37 Room Air Resident Activity Tracking Resident Involvement: Resident Care Provided Care Provided: Adult Hospital Medicine
--- NOTE | 2023-11-27 23:23 | CT Scan Report ---
Exam(s): CT C SPINE EXAM: CT Cervical Spine Without Intravenous Contrast CLINICAL HISTORY: Reason for exam: hx spinal tumor. TECHNIQUE: Axial computed tomography images of the cervical spine without intravenous contrast. Automated exposure control was utilized for the study. A dose lowering technique was utilized adhering to the principles of ALARA. COMPARISON: No relevant prior studies available. FINDINGS: Vertebrae: Moderate narrowing and osteophytosis of the atlantodental joint. The odontoid process is intact. No acute fracture. Soft tissues: Unremarkable. DISCS/SPINAL CANAL/NEURAL FORAMINA: C2-C3: Mild degenerative disc disease. No stenosis. C3-C4: Severe degenerative disc disease. Probable fusion. No stenosis. C4-C5: Mild degenerative disc disease. No stenosis. C5-C6: Severe degenerative disc disease. Probable fusion. No stenosis. C6-C7: Severe degenerative disc disease. Possible fusion. No stenosis. C7-T1: Mild degenerative disc disease. No stenosis. 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 There is degenerative fusion of C3-4 and C5-6. No acute fracture or subluxation is identified. Electronically signed by: Janes Rm MD 11/27/23 23:22 PM
[2023-11-28] MEDS ORDERED: ACETAMINOPHEN 325 MG TAB PO PRN (00:03)
[2023-11-28] MEDS: SODIUM CHLORIDE 0.9% 1,000 ML IV SCH (00:09)
--- NOTE | 2023-11-28 00:32 | Ultrasound Report ---
Exam(s): US CAROTID EXAM: US Duplex Bilateral Extracranial Arteries CLINICAL HISTORY: Reason for exam: syncope. TECHNIQUE: Real-time duplex ultrasound scan of the extracranial arteries integrating B-mode two-dimensional vascular structure, Doppler spectral analysis and color flow Doppler imaging. COMPARISON: No relevant prior studies available. FINDINGS: Right common carotid artery: Right common carotid artery 59.1 cm/s. No occlusion or significant stenosis on color flow and spectral Doppler imaging. Right internal carotid artery: Mild calcified plaque in the right internal carotid artery. Right internal carotid artery 80 cm/s. No occlusion or significant stenosis on color flow and spectral Doppler imaging. Right external carotid artery: Right external carotid artery 64 cm/s. No occlusion or significant stenosis on color flow and spectral Doppler imaging. Right vertebral artery: Right vertebral artery 39 cm/s, antegrade flow. Right ICA/CCA ratio: Right ICA/CCA ratio 1.4. Left common carotid artery: Left common carotid artery 68.3 cm/s. No occlusion or significant stenosis on color flow and spectral Doppler imaging. Left internal carotid artery: Mild calcified plaque in the left internal carotid artery. Left internal carotid artery 111 cm/s. No occlusion or significant stenosis on color flow and spectral Doppler imaging. Left external carotid artery: Left external carotid artery 61 cm/s. No occlusion or significant stenosis on color flow and spectral Doppler imaging. Left vertebral artery: Left vertebral artery 83 cm/s, antegrade flow. Left ICA/CCA ratio: Left ICA/CCA ratio 1.6. Lymph nodes: Unremarkable. No lymphadenopathy. CAROTID STENOSIS REFERENCE USING SRU CRITERIA: Mild - <50% stenosis. ICA PSV is less than 125 cm/second and plaque or intimal thickening is visible. Moderate - 50-69% stenosis. ICA PSV is 125 to 230 cm/second and plaque is visible. Severe - 70-94% stenosis. ICA PSV is more than 230 cm/second and visible plaque with lumen narrowing is seen. Near occlusion - 95-99% stenosis. ICA PSV is variable and significant plaque with luminal narrowing is seen. Occluded - 100% stenosis. No flow identified. IMPRESSION: Mild calcified plaque in the proximal internal carotid arteries bilaterally. Velocity measurements and ratios are consistent with less than 50% stenosis bilaterally. Electronically signed by: Janes Rm MD 11/28/23 00:31 AM
--- NOTE | 2023-11-28 04:27 | Billing Data ---
Date of Service November 27, 2023 Coding Level of Care Code 83959 INT INP/OBS CARE
[2023-11-28 07:14] LABS: Basophils # (auto) 0.06 K/uL (0.00-0.20); Basophils % (auto) 0.7 %; Eosinophils # (auto) 0.42 K/uL (0.00-0.50); Eosinophils % (auto) 4.8 %; Hematocrit (blood only) 35.2 % (42.0-52.0); Hemoglobin 11.6 g/dl (14.0-18.0); Immature Granulocytes # (auto) 0.03 K/uL (0.01-0.20); Immature Granulocytes % (auto) 0.3 %; Lymphocytes # (auto) 1.41 K/uL (1.20-3.40); Lymphocytes % (auto) 16.1 %; Mean Corpuscular Hemoglobin 30.7 pg (25.0-34.0); Mean Corpuscular Volume 93.1 fL (80.0-100.0); Mean Platelet Volume 10.3 fL (9.4-12.4); Monocytes # (auto) 1.13 K/uL (0.11-0.59); Monocytes % (auto) 12.9 %; Neutrophils # (auto) 5.71 K/uL (1.40-6.50); Neutrophils % (auto) 65.2 %; Platelet Count 248 K/uL (130-400); RDW Coefficient of Variation 13.2 % (11.5-14.5); RDW Standard Deviation 44.9 fL (36.4-46.3); Red Blood Count 3.78 M/uL (4.70-6.10); White Blood Count 8.76 K/ul (4.8-10.8)
[2023-11-28 07:49] LABS: BUN Creatinine Ratio 17.7 (10-20); Calcium 8.7 mg/dl (8.6-10.3); Creatinine Clr Calc Pharmacy 88.3 ml/min; Est GFR (African American) 104.1 ml/min; Est GFR (Non-African American) 89.8 ml/min; Potassium 3.8 mmol/L (3.5-5.1)
[2023-11-28] MEDS: CEROVITE ADV FORMULA TAB PO SCH (09:07)
[2023-11-28] MEDS: TAMSULOSIN HCL 0.4 MG CAP PO SCH (09:07)
--- NOTE | 2023-11-28 10:02 | XCELERA ---
[id number]
--- NOTE | 2023-11-28 12:41 | Discharge Summary ---
Date of Service November 28, 2023 Admission HPI Per Admitting Provider Patient is a 88-year-old male with past medical history of spinal tumor and BPH who presents to the hospital after 2 episodes of syncope. First syncopal episode happened on Monday after patient was dancing with his he started to have weakness in the legs and blacked out for approximately 10 seconds and had to go down to the ground. He notes that he was not drinking much that day and thought that it was most likely related to dehydration. He then had a another episode of syncope today. This time patient was alone and lost consciousness for about 10 seconds and woke up with his back on the cabinets. He states that he then called his and she came home to see him on the ground as he position. He also notes that he did not drink much water prior to this episode this morning. Denies ever having issues like this in the past. Denies any recent changes in medications. Denies any recent chest pain, palpitations, shortness of breath, dizziness, headaches, neck pain, back pain, fevers, chills, nausea, or vomiting. In the ED: Chest x-ray negative, head CT negative, CBC benign, PT/INR normal, CMP benign, TSH normal, magnesium normal, UA with trace ketones, and respiratory Bio[employer] negative. EKG showed sinus rhythm with first-degree AV block. Patient then tried to stand with nursing and was very weak. He will be admitted for syncopal workup/weakness. Admission Exam Per Admitting Provider Constitutional: well-appearing, no acute distress HEENT: NCAT, no conjunctival injection CV: regular rhythm, no murmur appreciated, extremities well-perfused, no LE edema Resp: CTABL, no wheezes/rales/rhonchi appreciated, no increased work of breathing GI: soft, nondistended, nontender, BS normoactive MSK: no gross deformities appreciated Skin: warm, dry, no rash appreciated Neuro: alert, oriented, no focal neurologic deficit appreciated Principal Diagnosis syncope Discharge Exam Constitutional: well-appearing, no acute distress HEENT: NCAT, no conjunctival injection CV: RRR no m/r/g extremities well-perfused, no LE edema Resp: CTAB, no wheezing no increased work of breathing GI: soft, nondistended, nontender, MSK: no gross deformities appreciated Skin: warm, dry, no rash appreciated Neuro: alert, oriented, no focal neurologic deficit appreciated Discharge Data Allergies Allergy/AdvReac Type Severity Reaction Status Date / Time No Known Allergies Allergy Verified 11/27/23 20:36 Consultations 11/27/23 22:11 ED Decision to Admit Stat Ordered Studies Chest X-Ray 11/27/23 13:38 FINDINGS: No lines and tubes are seen. Calcified aortic knob is seen. The lungs are clear. No evidence of pleural effusion or pneumothorax. IMPRESSION: No acute chest disease. Head CT 11/27/23 13:39 Findings: The paranasal sinuses and mastoid air cells are clear. The calvarium and skull base are intact. There is no mass, hematoma, midline shift, acute infarct. White matter hypodensity is nonspecific but suggestive of microvascular ischemic change. The ventricles and sulci demonstrate mild age-related involutional changes. Subtle density along the anterior falx favors chronic calcification. 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 Impression: No definite acute intracranial abnormality. Cervical Spine CT 11/27/23 21:32 FINDINGS: Vertebrae: Moderate narrowing and osteophytosis of the atlantodental joint. The odontoid process is intact. No acute fracture. Soft tissues: Unremarkable. DISCS/SPINAL CANAL/NEURAL FORAMINA: C2-C3: Mild degenerative disc disease. No stenosis. C3-C4: Severe degenerative disc disease. Probable fusion. No stenosis. C4-C5: Mild degenerative disc disease. No stenosis. C5-C6: Severe degenerative disc disease. Probable fusion. No stenosis. C6-C7: Severe degenerative disc disease. Possible fusion. No stenosis. C7-T1: Mild degenerative disc disease. No stenosis. 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 There is degenerative fusion of C3-4 and C5-6. No acute fracture or subluxation is identified. Carotid Doppler Study 11/27/23 23:08 COMPARISON: No relevant prior studies available. FINDINGS: Right common carotid artery: Right common carotid artery 59.1 cm/s. No occlusion or significant stenosis on color flow and spectral Doppler imaging. Right internal carotid artery: Mild calcified plaque in the right internal carotid artery. Right internal carotid artery 80 cm/s. No occlusion or significant stenosis on color flow and spectral Doppler imaging. Right external carotid artery: Right external carotid artery 64 cm/s. No occlusion or significant stenosis on color flow and spectral Doppler imaging. Right vertebral artery: Right vertebral artery 39 cm/s, antegrade flow. Right ICA/CCA ratio: Right ICA/CCA ratio 1.4. Left common carotid artery: Left common carotid artery 68.3 cm/s. No occlusion or significant stenosis on color flow and spectral Doppler imaging. Left internal carotid artery: Mild calcified plaque in the left internal carotid artery. Left internal carotid artery 111 cm/s. No occlusion or significant stenosis on color flow and spectral Doppler imaging. Left external carotid artery: Left external carotid artery 61 cm/s. No occlusion or significant stenosis on color flow and spectral Doppler imaging. Left vertebral artery: Left vertebral artery 83 cm/s, antegrade flow. Left ICA/CCA ratio: Left ICA/CCA ratio 1.6. Lymph nodes: Unremarkable. No lymphadenopathy. IMPRESSION: Mild calcified plaque in the proximal internal carotid arteries bilaterally. Velocity measurements and ratios are consistent with less than 50% stenosis bilaterally. Hospital Course (1) Syncope: Patient with two recent syncopal episodes in the setting of dehydration. Work up largely unrevealing. No signs of arrhythmia or neurological etiology. EKG with sinus rhythm with first-degree AV block. Echo and carotid duplex without significant aortic stenosis, reduced EF, or carotid stenosis. Likely in the setting of dehydration. Recommend adequate hydration and fall precautions. 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 Has been stable for many years. -CT cervical spine showed no acute fracture or subluxation. Did show moderate to severe multi level degenerative disc disease and facet or arthrosis throughout the cervical spine. As well as degenerative fusion of C3-4 and C5-6. -f/u outpatient Total Time Total Time Spent Total Time Spent (In Minutes): <30 Discharge Plan Discharge Items Patient Disposition: Home - Self-Care Reason For Visit: SYNCOPE Discharge Diagnosis: syncope Activity: Per Instructions section Non-emergency contact: Primary Care Provider Call non-emergency contact if: your symptoms worsen and your temperature is above 101 Follow-up/Referrals: Rayray Mcnair DO [Primary Care Provider] - Diet: Regular Addtl Attending Provider Instructions: You were admitted to the hospital for fainting spells. We evaluated you for stroke and cardiac etiologies of symptoms. This workup was largely negative. Your symptoms were likely in the setting of dehydration and decreased blood pressure. Recommend 60-80 ounces of liquid a day to avoid dehydration. Take your time when rising from a seated position and when getting out of bed in the morning. Please follow up with your primary care physician. A discharge summary will be sent to your primary care physician to ensure continuity of care. Please bring this discharge summary with you to your next office appointment so that your provider can review it at that time. Follow-up appointments: Make a follow-up appointment with your PCP within the next week. It is very important that you follow up with them shortly after discharge from the hospital. Medications: Your medication list has been reviewed and reconciled upon discharge to ensure accuracy and continuity of care. An updated list of all your medications is included with your hospital discharge paperwork. Please review this list closely, and make note of any changes. We did not make any changes to your medications. Take your medications as instructed; do not skip a dose of your medicines. Make sure all of your doctors know every medicine you are taking (including [id number] medicines, vitamins, and supplements). Call your primary care provider before taking any new medicines (including over- the- counter medicines, vitamins, and supplements), because some of these may interact with your current medications, or may make your symptoms worse. Tell your primary care provider if you cannot afford your medications. CONTACT YOUR PRIMARY CARE PROVIDER if you experience any of the following: worsening or return of symptoms that does not improve with hydration questions/concerns Difficulty following your treatment plan, or difficulty taking medications CALL 911 OR GO TO THE EMERGENCY DEPARTMENT if you experience any of the following: Sudden, severe abdominal pain or nausea/vomiting Severe chest pain, or chest pain that radiates (moves) to your jaw or arm Sudden, severe shortness of breath or difficulty breathing Thank you for allowing us to participate in your care Pending Studies at Discharge: No Stand-Alone Forms: My [employer], Smoking Cessation Medications and DC Order Prescriptions: Continued tamsulosin 0.4 mg capsule 0.4 mg PO DAILY PreserVision AREDS 7,160 unit- 113 mg-100 unit tablet 1 tab PO BIDM Rx Instructions: administer with AM and PM meals gabapentin 100 mg capsule 200 mg PO TID PRN (Reason: Pain) Discharge Orders: Discharge Order (Routine); Ordered 11/28/23 Ordered By: Fred Nava/Other Patient Handouts: Understanding Vasovagal Syncope Admission Data Admit Date/Time: 11/27/23 23:08 Attending Provider: Ventura Hamilton Admit Provider: Marty Powell Primary Care Provider: Rayray Mcnair Other Providers: Aga Rm Other Interventions: Discharge Summary Assessment (RN) Last Done: 11/28/23 15:21 Supervising Physician Co-Signing Physician Notes I personally examined the patient and verified all bright points of history and exam, discussed case, and agree with decision making with Dr Rush Feeling better and would very much like to go home. Does not drink much water. Has about 3 cups of coffee and not much else throughout the day. Discussed the importance of maintaining hydration extensively. Patient expressed understanding, as did his and son. Vitals noted, in general awake and alert pleasant no distress. HEENT normocephalic atraumatic mucous membranes moist. Breathing unlabored no accessory muscle use good effort. Skin shows no rashes no pallor or icterus. Neuro without focal deficits. Syncopealmost certainly due to dehydration. Echo reassuring, carotids not really fitting with syncope, but also reassuring. Safe/stable for home. Outlined hydration, discussed the need to log/track fluid intake given the general unreliability of a thirst response in a gentleman in his mid/late 80s. Otherwise as above. Resident Activity Tracking Resident Involvement: Resident Care Provided Care Provided: Adult Hospital Medicine
--- NOTE | 2023-11-28 19:38 | Billing Data ---
Date of Service November 28, 2023 Coding Level of Care Code 50672 IN/OBS DISCH 30 MIN/LESS
--- NOTE | 2023-11-29 05:27 | Electrocardiogram Report ---
Test Reason : Blood Pressure : / mmHG Vent. Rate : 061 BPM Atrial Rate : 061 BPM P-R Int : 224 ms QRS Dur : 132 ms QT Int : 458 ms P-R-T Axes : 076 -84 041 degrees QTc Int : 461 ms Sinus rhythm with 1st degree A-V block Right bundle branch block Left anterior fascicular block Bifascicular block Abnormal ECG When compared with ECG of 15-NOV-2017 15:26, Nonspecific T wave abnormality has replaced inverted T waves in Anterior leads Confirmed by Jeremy Wilson ([id number]) on 11/29/2023 5:27:31 AM Referred By: Confirmed By:Jeremy Wilson
== END 2023-11-28 15:21 | disposition home or self-care (01) ==
LOC: ED 13:33 → EDINP 13:33 → SUATTDRO 23:08 → EDINP 11-28 00:02